=== PATIENT | female | born 1945 | race Caucasian/White ===

== ENCOUNTER 2024-12-06 22:56 | Emergency (ER) | payer MEDICARE, OTHER ==
[2024-12-06 23:41] LABS: Bilirubin Neg (Negative); Blood, Urine 25 (Negative); Clarity Clear (Clear); Glucose, Urine (Dipstick) Normal (Negative); Ketone, Urine Negative (Negative); Leukocyte 100 (Negative); Nitrite Negative (Negative); Protein, Urine (Dipstick) 100 mg/dl (Neg-Trace); Urobilinogen Normal mg/dL (Less than 2)
[2024-12-06 23:45] LABS: #Basophils 0.05 10x3/uL (0.0-0.2); #Eosinophils 0.03 10x3/uL (0.0-0.5); #Monocytes 0.66 10x3/uL (0.0-1.1); %Basophils 0.5 % (0.0-2.0); %Eosinophils 0.3 % (0.0-6.0); %Lymphocytes 24.1 % (18.0-47.0); %Monocytes 6.5 % (0.0-10.0); %Neutrophils 68.4 % (40.0-75.0); Hematocrit 39.6 % (34.9-44.5); Hemoglobin 13.4 g/dL (12.0-15.5); Mean Corpuscular HGB CONC 33.8 g/dL (32.0-36.0); Mean Corpuscular Hemoglobin 28.4 pg (27.0-33.0); Mean Corpuscular Volume 83.9 fL (81.6-98.3); Mean Platelet Volume 9.1 fL (7.4-10.4); Platelet Count 178 10x3/uL (150-450); RBC Distribution Width 15.8 % (11.5-14.5); Red Blood Cell (RBC) Count 4.72 10x6/uL (3.90-5.03); White Blood Cell (WBC) Count 10.22 10x3/uL (3.5-10.5)
[2024-12-06 23:59] LABS: ALT (SGPT) 33 U/L (Less than 34); AST (SGOT) 48 U/L (11-34); Albumin 3.6 g/dL (3.1-4.5); Alkaline Phosphatase 105 U/L (40-110); Anion Gap 16 mmol/L (10-20); BUN (Urea Nitrogen) 9 mg/dL (9.8-20.1); Bilirubin, Total 0.8 mg/dL (0.3-1.2); Calc. Creatinine Clearance 0 mL/min (70-130); Calcium 9.4 mg/dL (7.8-10.44); Carbon Dioxide 22 mmol/L (23-31); Chloride 103 mmol/L (98-107); Estimated GFR 48; Globulin 4.7 g/dL (2.4-3.5); Glucose 94 mg/dL (83-110); Potassium 3.8 mmol/L (3.5-5.1); Protein, Total 8.3 g/dL (5.8-8.1); Sodium 137 mmol/L (136-145)
[2024-12-07 00:22] LABS: Bacteria/HPF 2+ HPF (None Seen); CAUTI Indications for Culture Alt mental st,lethar; RBC/HPF 0-3 HPF (0-3); Squamous Epithelial 0-3 HPF (0-3); Transitional Epithelial 0-3 HPF (None Seen); WBC/HPF 21-50 HPF (0-3)
[2024-12-07 00:24] LABS: Urine Culture Reflex Yes Yes
[2024-12-07] MEDS ORDERED: cefTRIAXone (ROCEPHIN) 1 GM VIAL ONE (00:37)
== END 2024-12-07 01:12 | disposition home or self-care (01) ==
LOC: CSHERS 22:56
DX: N39.0 Urinary tract infection, site not specified (principal); I10 Essential (primary) hypertension; J44.9 Chronic obstructive pulmonary disease, unspecified; Z87.891 Personal history of nicotine dependence
CPT/HCPCS: 70450; 80053; 81001; 82140; 83605; 85025; 87086; 93005; J0696; 51701; 87077; 87186; 96361; 96365